=== PATIENT | female | born 1965 | race African-American/Black ===

== ENCOUNTER → 2016-08-16 | Outpatient (CLI) | payer BC ==
[~2016-08-16] MED LIST: CEFTIN 250250 MG/TAB PO; IBU800 M1 PO; LASIX 20MG TABL20 MG PO; LORTAB 7.5/5001 TAB PO; OSCAL 500 TAB500 MG PO; PREMARIN 1.251.25 MG PO; PRILOSEC10 MG PO; PROAIR HFA0.09 MG/AC IH; PYRIDIUM200 M1 PO; VITAMIN E1000 U/CAP PO
== END ==
LOC: COL.RAD 12:15
DX: M75.121 Complete rotator cuff tear or rupture of right shoulder, not specified as traumatic (principal); M25.511 Pain in right shoulder

== ENCOUNTER → 2016-09-23 | Outpatient (CLI) | payer BC | LOC: COL.VAS 14:00 | DX: M79.662 Pain in left lower leg (principal); M79.89 Other specified soft tissue disorders ==

== ENCOUNTER → 2016-12-24 | Outpatient (CLI) | payer BC | LOC: MC.RAD 12-13 11:00 | DX: Z12.31 Encounter for screening mammogram for malignant neoplasm of breast (principal) ==

== ENCOUNTER → 2018-01-22 | Outpatient (CLI) | payer BC | LOC: MC.RAD 10:40 | DX: Z12.31 Encounter for screening mammogram for malignant neoplasm of breast (principal); Z41.1 Encounter for cosmetic surgery ==

== ENCOUNTER → 2018-11-13 | Outpatient (CLI) | payer BC | LOC: COL.VAS 15:09 | DX: M79.605 Pain in left leg (principal) ==

== ENCOUNTER → 2019-03-19 | Outpatient (CLI) | payer BC | LOC: MC.RAD 11:45 | DX: Z12.31 Encounter for screening mammogram for malignant neoplasm of breast (principal) ==

== ENCOUNTER 2019-08-31 12:28 | Emergency (ER) | payer BC | END 2019-08-31 12:51 | disposition left against medical advice (07) | LOC: COL.ER 12:28 | DX: Z72.9 Problem related to lifestyle, unspecified (principal) ==

== ENCOUNTER → 2020-03-28 | Outpatient (CLI) | payer BC | LOC: MC.RAD 10:57 | DX: Z12.31 Encounter for screening mammogram for malignant neoplasm of breast (principal) ==

== ENCOUNTER 2020-07-03 10:55 | Emergency (ER) | payer BC ==
[~2020-07-03] VITALS: Ht 162.6 cm; Wt 84.1 kg
[2020-07-03 12:10] LABS: ALBUMIN 3.6 gm/dL (3.5-5.0); BILIRUBIN,TOTAL 0.5 mg/dL (0.0-1.0); CALCIUM 8.5 mg/dL (8.4-10.2); CREATININE, serum 0.75 (0.52-1.25); TOTAL PROTEIN 7.1 gm/dL (6.4-8.2)
[2020-07-03 12:14] LABS: HEMOGLOBIN 11.1 g/dl (12.5-16.0); MEAN CELL VOLUME 73 fl (80.0-100.0); MEAN CORPUSCULAR HEMOGLOBIN 22 pg (27.0-31.0); MEAN CORPUSCULAR HGB CONC 31 g/dl (33.0-37.0); MEAN PLATELET VOLUME 11.4 fl (7.4-10.4); PLATELET COUNT 281 K/mm3 (130-400); RED BLOOD COUNT 4.97 M/mm3 (4.10-5.30); REDCELL DISTRIBUTION WIDTH-CV 14.6 % (11.5-14.5)
[2020-07-03 12:17] LABS: HEMATOCRIT 36.1 % (37.0-47.0)
[2020-07-03 12:41] LABS: BAND 2 % (0-10); EOSINOPHIL 1 % (0-4); HYPOCHROMIA 1+; LYMPHOCYTE 32 % (20.0-51.0); METAMYELOCYTE 3 % (0-0); MICROCYTOSIS 1+; NEUTROPHILS 52 % (42.0-75.2); PLATELET ESTIMATE NORMAL (NORMAL)
[2020-07-03] MEDS ORDERED: PREDNISONE20 MG PO (12:52)
[2020-07-03 13:02] VITALS: BP 122/80; PULSE 79; TEMP 98.1
== END 2020-07-03 13:04 | disposition home or self-care (01) ==
LOC: COL.ER 10:55
PROVIDERS: Physician Assistant
DX: U07.1 COVID-19 (principal); J45.901 Unspecified asthma with (acute) exacerbation; K21.9 Gastro-esophageal reflux disease without esophagitis; Z88.8 Allergy status to other drugs, medicaments and biological substances; Z87.891 Personal history of nicotine dependence
CPT/HCPCS: J7030

== ENCOUNTER 2020-07-23 12:43 | Emergency (ER) | payer BC ==
[~2020-07-23] VITALS: Ht 162.6 cm; Wt 86.4 kg
[~2020-07-23 12:43] MED LIST changes: +PREDNISONE20 MG PO
[2020-07-23 14:38] VITALS: BP 128/64; PULSE 78; TEMP 98.3
== END 2020-07-23 14:43 | disposition home or self-care (01) ==
LOC: COL.ER 12:43
DX: S83.92XA Sprain of unspecified site of left knee, initial encounter (principal); S63.501A Unspecified sprain of right wrist, initial encounter; S93.502A Unspecified sprain of left great toe, initial encounter; Z88.8 Allergy status to other drugs, medicaments and biological substances; Z79.52 Long term (current) use of systemic steroids; W18.2XXA Fall in (into) shower or empty bathtub, initial encounter
CPT/HCPCS: L1846

== ENCOUNTER → 2021-03-30 | Outpatient (CLI) | payer BC | LOC: MC.RAD 13:00 | DX: Z12.31 Encounter for screening mammogram for malignant neoplasm of breast (principal) ==

== ENCOUNTER → 2021-05-03 | Outpatient (CLI) | payer BC | LOC: COL.RAD 12:42 | DX: S63.591A Other specified sprain of right wrist, initial encounter (principal) | CPT/HCPCS: A9585; Q9967 ==

== ENCOUNTER 2021-07-16 18:41 | Emergency (ER) | payer BC ==
[~2021-07-16] VITALS: Ht 162.6 cm; Wt 90.0 kg
[2021-07-16 19:23] VITALS: TEMP 98.5
[2021-07-16 21:12] LABS: HEMOGLOBIN 10.8 g/dl (12.5-16.0); MEAN CELL VOLUME 72 fl (80.0-100.0); MEAN CORPUSCULAR HEMOGLOBIN 22 pg (27-31); MEAN CORPUSCULAR HGB CONC 31 g/dl (33.0-37.0); MEAN PLATELET VOLUME 11.1 fl (7.4-10.4); PLATELET COUNT 340 K/mm3 (130-400); RED BLOOD COUNT 4.82 M/mm3 (4.10-5.30)
[2021-07-16 21:16] LABS: HEMATOCRIT 34.5 % (37.0-47.0)
[2021-07-16 21:29] LABS: ALBUMIN 3.4 gm/dL (3.5-5.0); BILIRUBIN,TOTAL 0.2 mg/dL (0.2-1.2); C-REACTIVE PROTEIN 2.36 mg/dL (0.00-0.50); CALCIUM 9.2 mg/dL (8.4-10.2); CREATININE, serum 0.82 mg/dL (0.57-1.11); POTASSIUM 4.6 mmol/L (3.5-4.5); TOTAL PROTEIN 7.1 gm/dL (6.2-8.1)
[2021-07-16 21:42] LABS: EOSINOPHIL 2 % (0-4); LYMPHOCYTE 27 % (20.0-51.0); METAMYELOCYTE 1 % (0-0); NEUTROPHILS 62 % (42.0-75.2)
[2021-07-16 21:43] LABS: ANISOCYTOSIS 1+; MICROCYTOSIS 1+; OVALOCYTES 1+; PLATELET ESTIMATE NORMAL (NORMAL); POIKILOCYTOSIS 1+; TARGET CELLS 1+
[2021-07-16 21:44] LABS: HYPOCHROMIA 1+
[2021-07-16 22:25] VITALS: BP 138/62; PULSE 88
== END 2021-07-16 22:32 | disposition home or self-care (01) ==
LOC: COL.ER 18:41
PROVIDERS: Nurse Practitioner
DX: R51.9 Headache, unspecified (principal)

== ENCOUNTER 2021-09-09 19:43 | Emergency (ER) | payer BC ==
[~2021-09-09] VITALS: Ht 162.6 cm; Wt 88.6 kg
[2021-09-09 20:03] VITALS: TEMP 98.8
[2021-09-09] MEDS ORDERED: FLEXERIL 1010 MG/TAB PO (21:49)
[2021-09-09 22:01] VITALS: BP 186/97; PULSE 59
== END 2021-09-09 22:01 | disposition home or self-care (01) ==
LOC: COL.ER 19:43
DX: I10 Essential (primary) hypertension (principal); M54.2 Cervicalgia
CPT/HCPCS: J1885

== ENCOUNTER → 2023-08-05 | Outpatient (CLI) | payer BC ==
[~2023-08-05] MED LIST changes: +ELIQUIS 5MG PO; +FLEXERIL 1010 MG/TAB PO; +NORVASC 5MG5 MG/TAB PO; +PREMARIN 0.60.625 M1 PO; +PRIL40 PO
== END ==
LOC: COL.RAD 06:54
DX: I82.402 Acute embolism and thrombosis of unspecified deep veins of left lower extremity (principal)

== ENCOUNTER → 2023-11-04 | Outpatient (REF) | payer BC ==
[2023-11-04 21:33] LABS: BAND 1 % (0-10); EOSINOPHIL 1 % (0-4); LYMPHOCYTE 25 % (20.0-51.0); MICROCYTOSIS 1+; NEUTROPHILS 65 % (42.0-75.2)
[2023-11-04 21:34] LABS: HYPOCHROMIA 1+; POLYCHROMASIA 1+; TARGET CELLS 1+
== END ==
LOC: ZCOL.LAB 16:30
PROVIDERS: Family Medicine
DX: C92.10 Chronic myeloid leukemia, BCR/ABL-positive, not having achieved remission (principal)

== ENCOUNTER → 2023-11-18 | Outpatient (REF) | payer BC ==
[2023-11-18 16:13] LABS: BASOPHIL 1 % (0-2); LYMPHOCYTE 25 % (20.0-51.0); NEUTROPHILS 69 % (42.0-75.2)
== END ==
LOC: ZCOL.LAB 14:35
PROVIDERS: Family Medicine
DX: C92.10 Chronic myeloid leukemia, BCR/ABL-positive, not having achieved remission (principal)

== ENCOUNTER → 2024-02-10 | Outpatient (CLI) | payer BC ==
[2024-02-10 19:10] LABS: ANISOCYTOSIS 1+; LYMPHOCYTE 44 % (20.0-51.0); NEUTROPHILS 56 % (42.0-75.2)
[2024-02-10 19:11] LABS: HYPOCHROMIA 1+
== END ==
LOC: ZCOL.LAB 18:10
PROVIDERS: Family Medicine
DX: C92.10 Chronic myeloid leukemia, BCR/ABL-positive, not having achieved remission (principal)

== ENCOUNTER → 2024-06-16 | Outpatient (CLI) | payer BC | LOC: COL.RAD 07:10 | DX: M79.89 Other specified soft tissue disorders (principal) ==